=== PATIENT | male | born 1975 | race Two or more races ===

== ENCOUNTER 2018-07-27 12:29 | Emergency (ER) | payer BC ==
--- NOTE | 2018-07-27 12:37 | ED Physician Chart ---
ED Chief Complaint/HPI - Patient Information Date Seen:: 07/27/18 Time Seen:: 12:32 Chief Complaint:: chest pain History of Present Illness:: THIS IS A 42 YO MALE WITH THE SUDDEN ONSET OF CHEST PAIN IN THE CENTER OF THE CHEST THAT RADIATED DOWN THE LEFT ARM. HE DENIES ANY PREVIOUS HEART DISEASE, HYPERTENSION OR DIABETES. HE DENIES NAUSEA AND VOMITING. HE DENIES SMOKING AND DRINKING. HE ALSO HAS SOB ON MOVING AROUND. Historian:: Patient Review:: Nurse's Note Reviewed ED Review of Systems - Review of Systems General/Constitutional: No fever, No chills, No weight loss, No weakness, No diaphoresis, No edema, No loss of appetite Skin: No skin lesions, No rash, No bruising Head: No headache, No light-headedness Eyes: No loss of vision, No pain, No diplopia ENT: No earache, No nasal drainage, No sore throat, No tinnitus Neck: No neck pain, No swelling, No thyromegaly, No stiffness, No mass noted Cardio Vascular: Chest pain, No palpitations, No PND, No orthopnea, No edema Pulmonary: SOB, No cough, No sputum, No wheezing GI: No nausea, No vomiting, No diarrhea, Pain, No melena, No hematochezia, No constipation, No hematemesis G/U: No dysuria, No frequency, No hematuria Musculoskeletal: No bone or joint pain, No back pain, No muscle pain Endocrine: No polyuria, No polydipsia Psychiatric: No prior psych history, No depression, No anxiety, No suicidal ideation Hematopoietic: No bruising, No lymphadenopathy Allergic/Immuno: No urticaria, No angioedema Neurological: No syncope, No focal symptoms, No weakness, No paresthesia, No headache, No seizure, No dizziness, No confusion, No vertigo ED Past Medical History - Past Medical History Obtainable: Yes Past Medical History: No significant medical hx Family History: None Social History: Non Smoker, No Alcohol, No Drug Use, Employed Surgical History: None Psychiatricy History: None Medication: Reviewed Family Medical History - Family Member Mother History Unknown: Yes ED Physical Exam - Physical Examination General/Constitutional: Awake, Well-developed, well-nourished, Alert, No distress, GCS 15, Non-toxic appearing, Ambulatory Other Gen/Cons comments:: OBESE Head: Atraumatic Eyes: Lids, conjuctiva normal, PERRL, EOMI Skin: Nl inspection, No rash, No skin lesions, No ecchymosis, Well hydrated, No lymphadenopathy ENMT: External ears, nose nl, Nasal exam nl, Lips, teeth, gums nl Neck: Nontender, Full ROM w/o pain, No JVD, No nuchal rigidity, No bruit, No mass, No stridor Respiratory: Nl effort/Exclusion, Clear to Auscultation, No Wheeze/Rhonchi/Rales Cardio Vascular: RRR, No murmur, gallop, rubs, NL S1 S2 GI: No tenderness/rebounding/guarding, No organomegaly, No hernia, Normal BS's, Nondistended, No mass/bruits, No McBurney tenderness : No CVA tenderness Extremities: No tenderness or effusion, Full ROM, normal strength in all extremities, No edema, Normal digits & nails Neuro/Psych: Alert/oriented, DTR's symmetric, Normal sensory exam, Normal motor strength, Judgement/insight normal, Mood normal, Normal gait, No focal deficits Misc: Normal back, No paraspinal tenderness ED Labs/Radiology/EKG Results - Radiology Results Results: CHEST X-RAY = NAD - EKG Interpretations EKG Time:: 12:42 Rate & Rhythm: RATE=89, SINUS [place]: LEFT AXIS ED Assessment - Assessment General Assessment: UNSTABLE ANGINA OBESITY ED Septic Shock - . Is Septic Shock (SBP<90, OR Lactate>4 mmol\L) present?: No ED Reassessment (Disposition) - Reassessment Reassessment Condition:: Improved - Diagnosis Diagnosis:: CHEST PAIN DIABETES MELLITUS HYPERCHOLESTEROLEMIA ABDOMINAL VENTRAL HERNIA - Aftercare/Follow up Instructions Aftercare/Follow-Up Instructions:: Counseled pt regarding lab results/diagnosis & need follow up, Refer to Discharge Instructions, Counseled pt & family regarding lab results/diagnosis & need follow up Notes:: THIS PATIENT WAS REFERRED TO A PMD WITH HIS LABS FOR MANAGEMENT OF HIS DIABETES , OBESITY, VENTRAL HERNIA AND HIGH TRIGLYCERIDES. Medication Prescribed:: PEPCID, GABAPENTIN - Patient Disposition Discharge/Transfer:: Home Condition at Disposition:: Stable, Improved
[2018-07-27 12:53] LABS: HEMATOCRIT 44.5 % (41.0-60); HEMOGLOBIN 19.7 gm/dL (12-16); MEAN CORPUSCULAR HEMOGLOBIN 36.8 pg (26.0-30.0); MEAN CORPUSCULAR HGB CONC 44.3 pg (28.0-36.0); MEAN PLATELET VOLUME 6.5 fl; PLATELET COUNT 297 Th/cmm (150-400); RED BLOOD COUNT 5.36 Mil/cmm (4.30-5.70); RED CELL DISTRIBUTION WIDTH 13.2 % (11.5-20.0); WHITE BLOOD COUNT 6.7 Th/cmm (4.8-10.8)
[2018-07-27 13:13] LABS: ALB/GLOB RATIO 3.8 (1.0-1.8); ALBUMIN 4.9 gm/dL (4.2-5.5); ALKALINE PHOSPHATASE 89 U/L (34-104); ANION GAP 16.4 (7.0-16.0); BILIRUBIN,TOTAL 1.2 mg/dL (0.3-1.0); CALCIUM SERUM 10.1 mg/dL (8.6-10.3); CARBON DIOXIDE 19.5 mEq/L (21.0-31.0); CHLORIDE 90 mEq/L (98-107); CHOLESTEROL 742 mg/dL (<200); CREATININE - SERUM 0.9 mg/dL (0.7-1.3); GFR AFRICAN-AMERICAN > 60.0 ml/min (>90); GFR NON AFRICAN-AMERICAN > 60.0 ml/min; GLUCOSE 400 mg/dL (70-105); HDL -HIGH DENSITY LIPOPROTEIN 17 mg/dL (23-92); POTASSIUM SERUM 3.9 mEq/L (3.5-5.1); SODIUM SERUM 122 mEq/L (136-145); TOTAL PROTEIN,SERUM 6.2 gm/dL (6.0-8.3); TRIGLYCERIDES 1223 mg/dL (<150)
[2018-07-27 13:17] LABS: EOSINOPHIL 3 % (0-5); LYMPHOCYTE 34 % (20-50); MONOCYTE 3 % (2-10); NEUTROPHILS 60 % (40-80)
[2018-07-27] MEDS ORDERED: IOHEXOL 300mgI/mL 100 ML VIAL ONE (13:43)
[2018-07-27 14:19] LABS: URINE SOURCE CLEAN C
[2018-07-27 14:50] LABS: URINE BILIRUBIN NEGATIVE (NEGATIVE); URINE BLOOD NEGATIVE (NEGATIVE); URINE GLUCOSE (UA) >=1000 mg/dL (NEGATIVE); URINE KETONE 15 mg/dL (NEGATIVE); URINE LEUKOCYTE ESTERASE NEGATIVE (NEGATIVE); URINE MICROSCOPIC INDICATED? YES; URINE NITRATE NEGATIVE (NEGATIVE); URINE PROTEIN NEGATIVE (NEGATIVE); URINE UROBILINOGEN 0.2 E.U./dL (0.2 - 1.0)
[2018-07-27 14:54] LABS: URINE CLARITY CLEAR (CLEAR); URINE COLOR YELLOW
[2018-07-27 14:55] LABS: URINE BACTERIA OCCASIONAL /hpf (NONE SEEN); URINE EPITHELIAL CELLS NONE SEEN /lpf (FEW); URINE RBC NONE SEEN /hpf (0-5); URINE WBC 0-2 /hpf (0-5)
[2018-07-27 15:45] LABS: PROTHROMBIN TIME (TEST) 10.7 SECONDS (9.5-11.5)
[2018-07-27 15:46] LABS: INR 1.04 (0.5-1.4)
[2018-07-27 16:06] LABS: AMPHETAMINE URINE NEGATIVE (NEGATIVE); BARBITURATES URINE NEGATIVE (NEGATIVE); BENZODIAZEPINES QUAL URINE NEGATIVE (NEGATIVE); CANNABINOID THC NEGATIVE (NEGATIVE); COCAINE METABOLITE QUAL URINE NEGATIVE (NEGATIVE); METHADONE URINE NEGATIVE (NEGATIVE); METHAMPHETAMINES QUAL URINE NEGATIVE (NEGATIVE); OPIATES (MORPHINE) QUAL. URINE NEGATIVE (NEGATIVE); PHENCYCLIDINE (PCP) URINE NEGATIVE (NEGATIVE); TRICYCLICS (TCA) QUAL. URINE NEGATIVE (NEGATIVE)
[2018-07-27 17:33] LABS: BUN - UREA NITROGEN 14 mg/dL (7-25); SGOT 49 U/L (13-39); SGPT/ALT 57 U/L (7-52)
[2018-07-27] MEDS ORDERED: Sodium Chloride 0.9% 1,000 ML IV ONE (17:52)
--- NOTE | 2018-07-28 08:37 | Diagnostic Imaging Report ---
Portable chest x-ray History: Pain Allowing for portable technique the heart size is normal. No focal pulmonary parenchymal processes. No hilar or mediastinal abnormalities. Impression: No acute abnormalities.
--- NOTE | 2018-07-28 08:38 | Diagnostic Imaging Report ---
CT scan abdomen and pelvis with intravenous contrast HISTORY: Pain Total DLP equals 943 CTDI equals 17.6 Following administration of intravenous contrast, axial sections were obtained from the xiphoid process down to the pubic symphysis. The liver appears enlarged. No focal lesions. The spleen appears normal. No focal amenities seen within the pancreas. No focal renal lesions. There is an approximate 4.5 cm defect within the anterior abdominal wall associated with a ventral hernia with nondilated bowel situated within the subcutaneous tissues. The exam of the pelvis demonstrates preservation of normal fat planes. No abnormal soft tissue masses or abnormal fluid collections. No bowel dilatation. IMPRESSION: 1. 4.5 cm defect within the anterior abdominal wall associated with herniation of nondilated bowel into the subcutaneous tissues.
== END 2018-07-27 19:15 | disposition home or self-care (01) ==
LOC: ER 12:29
DX: R07.89 Other chest pain (principal); E11.9 Type 2 diabetes mellitus without complications; E78.5 Hyperlipidemia, unspecified; K43.9 Ventral hernia without obstruction or gangrene
CPT/HCPCS: 99284; 96374; 93005; 71045; 74177; 84484; 36415; 36416 ×3; 82948 ×3; 80307; 84443; 85007; 85025; 85610; 85730; 81001; 83036; 80053; 80061; J1885; J7040; J7030; Q9967; Z7502